=== PATIENT | female | born 1985 | race Caucasian/White ===

== ENCOUNTER 2022-02-12 12:31 | Outpatient (CLI) | payer OTHER | END 2022-02-12 12:32 | disposition home or self-care (01) | LOC: SCSRAD 12:31 | PROVIDERS: ATTEND Neurological Surgery | DX: M54.16 Radiculopathy, lumbar region (principal); M54.50 Low back pain, unspecified; M51.37 Other intervertebral disc degeneration, lumbosacral region | CPT/HCPCS: 72100 ==